=== PATIENT | female | born 1995 | race Caucasian/White ===

== ENCOUNTER 2021-04-17 16:11 | Outpatient (CLI) | payer BC, SELFPAY ==
[2021-04-17 16:35] LABS: Basophils Percent Auto 0.2 % (0.2-1.2); Eosinophils Absolute Auto 0.1 K/mm3 (0-0.3); Eosinophils Percent Auto 1.6 % (0-4.4); Hemoglobin 14.4 g/dL (12.0-15.0); Immature Granulocyte Absolute 0.01 K/mm3 (0.00-0.031); Immature Granulocyte Percent A 0.2 % (0-0.5); Lymphocytes Absolute Auto 1.78 K/mm3 (0.9-3.2); Mean Corpuscular HGB Conc 32.7 g/dl (32-36); Mean Corpuscular Hemoglobin 29.4 pg (26-34); Mean Corpuscular Volume 89.8 fl (80-100); Monocytes Absolute Auto 0.4 K/mm3 (0.1-0.6); Monocytes Percent Auto 7.1 % (2.6-8.5); Neutrophils Absolute Auto 2.7 K/mm3 (1.3-6.7); Neutrophils Percent Auto 54.9 % (45.5-73.1); Platelet Count Result 301 k/mm3 (150-375); Red Cell Distribution Width 12.3 % (11.5-14.5)
[2021-04-17 19:21] LABS: Alanine Aminotransferase 17 U/L (4-35); Albumin Level 4.6 g/dL (3.5-5.1); Alkaline Phosphatase 94 U/L (38-126); Anion Gap 10 mmol/L (8-16); Aspartate Amino Transferase 25 U/L (14-36); Bilirubin,Total 0.5 mg/dL (0.2-1.3); Blood Urea Nitrogen 11 mg/dL (7-17); Calcium 10.1 mg/dL (8.4-10.2); Carbon Dioxide 22 mmol/L (22-30); Chloride 107 mmol/L (98-107); Cholesterol 179 mg/dL (0-200); Estimated Glomerular Filt Rate > 60; Glucose 104 mg/dL (65-105); HDL Direct 36 mg/dL; Hemoglobin A1C 5.4 % (<5.7); Potassium 4.5 mmol/L (3.4-5.0); Sodium 139 mmol/L (137-145); Triglycerides 104 mg/dL (<150)
[2021-04-17 19:32] LABS: LDL Cholesterol Direct 104 mg/dL
[2021-04-17 19:48] LABS: Free T4 Free Thyroxine 1.02 ng/mL (0.78-2.19)
[2021-04-17 20:26] LABS: Folic Acid 13.4 ng/mL (2.76->20)
[2021-04-17 21:53] LABS: Vitamin D 25 Hydroxy 48.4 ng/mL
== END 2021-04-17 16:12 | disposition home or self-care (01) ==
PROVIDERS: PCP Family Medicine
DX: R53.83 Other fatigue (principal)
CPT/HCPCS: 36415; 80053; 80061; 82306; 82607; 82746; 83036; 84439; 84443; 85025

== ENCOUNTER 2022-02-02 16:22 | Outpatient (CLI) | payer BC, SELFPAY ==
--- NOTE | ~2022-02-02 | XR_ITS ---
EXAM: XR tibia fibula RT 2V HISTORY: M89.8X6 - Other specified disorders of bone, lower leg PAIN COMPARISON: None available FINDINGS: Normal mineralization. No fracture or dislocation. No lytic or blastic lesion. Joint space s maintained. No erosion or periosteal change. Soft tissues within normal limits. IMPRESSION: Normal right tibia and fibula radiograph findings. Reviewed, dictated and finalized at location K.
== END 2022-02-02 16:23 | disposition home or self-care (01) ==
LOC: ANHIMG 16:26
PROVIDERS: PCP Family Medicine; Visit Provider Family Medicine
DX: M89.8X6 Other specified disorders of bone, lower leg (principal)
CPT/HCPCS: 73590

== ENCOUNTER 2022-03-16 13:54 | Outpatient (CLI) | payer BC, SELFPAY ==
[2022-03-16 14:23] LABS: Basophils Percent Auto 0.2 % (0.2-1.2); Eosinophils Absolute Auto 0.2 K/mm3 (0-0.3); Eosinophils Percent Auto 5.1 % (0-4.4); Hemoglobin 14.4 g/dL (12.0-15.0); Immature Granulocyte Absolute 0.01 K/mm3 (0.00-0.031); Immature Granulocyte Percent A 0.2 % (0-0.5); Lymphocytes Absolute Auto 1.53 K/mm3 (0.9-3.2); Lymphocytes Percent Auto 37.2 % (18.3-44.2); Mean Corpuscular HGB Conc 32.7 g/dl (32-36); Mean Corpuscular Hemoglobin 29.7 pg (26-34); Mean Corpuscular Volume 90.7 fl (80-100); Mean Platelet Volume 8.8 fl (7.4-10.4); Monocytes Absolute Auto 0.5 K/mm3 (0.1-0.6); Monocytes Percent Auto 12.9 % (2.6-8.5); Neutrophils Absolute Auto 1.8 K/mm3 (1.3-6.7); Neutrophils Percent Auto 44.4 % (45.5-73.1); Platelet Count Result 283 k/mm3 (150-375); Red Blood Count 4.85 M/mm3 (4.2-5.4); Red Cell Distribution Width 12.5 % (11.5-14.5); White Blood Count 4.1 K/mm3 (4.5-10.0)
[2022-03-16 15:18] LABS: Vitamin D 25 Hydroxy 49.5 ng/mL
[2022-03-16 16:20] LABS: Alanine Aminotransferase 23 U/L (6-35); Albumin Level 4.4 g/dL (3.5-5.1); Alkaline Phosphatase 104 U/L (38-126); Anion Gap 9 mmol/L (8-16); Aspartate Amino Transferase 29 U/L (14-36); Bilirubin,Total 0.3 mg/dL (0.2-1.3); Blood Urea Nitrogen 7 mg/dL (7-17); Calcium 9.3 mg/dL (8.4-10.2); Carbon Dioxide 26 mmol/L (22-30); Chloride 103 mmol/L (98-107); Cholesterol 174 mg/dL (0-200); Estimated Glomerular Filt Rate > 60; Glucose 103 mg/dL (65-110); HDL Direct 35 mg/dL; Potassium 4.6 mmol/L (3.4-5.0); Sodium 138 mmol/L (137-145); Triglycerides 96 mg/dL (<150)
[2022-03-16 16:32] LABS: LDL Cholesterol Direct 108 mg/dL
== END 2022-03-16 13:55 | disposition home or self-care (01) ==
LOC: ANHLAB 13:56
PROVIDERS: PCP Family Medicine; Visit Provider Family Medicine
DX: Z00.00 Encounter for general adult medical examination without abnormal findings (principal); E55.9 Vitamin D deficiency, unspecified; E53.8 Deficiency of other specified B group vitamins; Z13.220 Encounter for screening for lipoid disorders; Z79.899 Other long term (current) drug therapy; F41.8 Other specified anxiety disorders; G47.00 Insomnia, unspecified
CPT/HCPCS: 36415; 80053; 80061; 82306; 82607; 84443; 85025

== ENCOUNTER 2025-02-25 07:00 | Emergency (ER) | payer OTHER, SELFPAY ==
--- NOTE | ~2025-02-25 | XR_ITS ---
XR hip LT 2V w AP pelvis Ordering provider: Vidal Murphy MD History: . Nontraumatic pain . Comparison: October 02, 2004 FINDINGS: BONES: No acute fracture or dislocation. Postoperative changes in the left femur. HIP JOINT SPACES: Normal. SACROILIAC JOINT SPACES/LUMBAR SPINE: The sacroiliac joint spaces are normal. Normal visualized lower lumbar spine. PUBIC SYMPHYSIS: Normal. SOFT TISSUES: Normal. IUD is seen in the uterus. IMPRESSION: No acute osseous abnormality pelvis and left hip. Reviewed, dictated and finalized at location A.
[2025-02-25 07:02] VITALS: BP 107/67; PULSE 68; RESP 16; TEMP 36.6; O2SAT 100
--- OUTSIDE RECORDS SUMMARY | 2025-02-25 07:03 | XMS_ITS | Data Portability ---
Author Organization [facility] [place] Address [address] [place] [address] Assessment Encounter Date Assessment Date Assessment LastModified by Organization Details LastModified Time 08/27/2020 08/27/2020 Annual gynecological exam performed. Patient will come back in a year unless there are new symptoms. Not available 08/27/2020 17:35:51 05/28/2021 05/28/2021 pt mitchell well, f/u one month IUD check Not available 05/28/2021 15:13:59 Plan of Treatment Reminders Order Date Submit Date Provider Last Modified By Organization Details Last Modified Time Details Appointments None recorded. Lab None recorded. Referral None recorded. Procedures None recorded. Surgeries None recorded. Imaging None recorded. Medication Orders Cytotec 200 mcg tablet 2020 021 [email or web address] 1 [facility] #[id number], [address] [place], [place], [id number], 10:43:42 ibuprofen 800 mg tablet 2020 021 TRISHA [facility] #[id number], [address], [place], [id number], 15:43:51 Patient TargetsNo targets recorded. Patient Instructions Encounter Date Encounter Id Patient Instructions Last Modified By Organization Details Last Modified Time 08/27/2020 [id number] IUD removed, pamphlets on bcm, considering nexplanon, call with cycle, condoms as bcm until decides Not available 08/28/2020 11:32:24 Reason for Referral None Reported. Results Created Date Observation Date Name Description Value Unit Range Abnormal Flag Note LastModifiedBy Organization Detail LastModifiedTime 08/27/20 20 08/29/2020 pap, LB Pap test thin prep Negati ve for Intrae pithel ial Lesion or Malign ga normal ACCES JAMES #: [id number] Sourc e: Cervi jewels/E ndoce rvica l LMP: 08/11 Date Taken : 08/27 Speci men Type: ThinP rep Vial Date Repor selina: 2019 Clini jewels Data: Cytot ech: Juan Manuel Zhong Solpilo y, CT( CP) Date Repor selina: 2019 Speci men Adequ acy: Satis facto ry for evalu ation Endoc ervic al/tr ansfo rmati on zone compo nent prese nt Gener al Categ oriza tion: NEGAT LIZZETTE FOR INTRA EPITH ELIAL LESIO N OR MALIG LUIS FELIPE This speci men has been justen zed by the ThinP rep Imagi ng Syste m, an inter activ e compu ter syste m which lynnette ts the lab in the scree jitendra of ThinP rep Pap Test slide s. Follo wing imagi ng, the slide was revie wed by a Cytot echno logis t and/o r Patho logis t. End of Repor t Techn ical servi zachariah provi ded by [facility], d/b/a [place] [facility], [address] [place] [address] Herb Dillard MD, Labor [employer] D[employer] tor. Case revie wed and diagn osis rende red at [facility], d/b/a [place] [facility], [address] [place] [address] Herb Dillard MD, Labor [employer] [facility] tor. CONFI DENTI AL Not Available [facility] ([facility]) [address], [place], [address], 08/29/2020 15:05:41 05/20/20 21 05/20/2021 BHCG, QUANT ITATI VE B-HCG <0.2 mIU/m L This assay was perfo rmed using [facility] [employer] ratio n reage nts and test kits. Value s obtai nora with other assay metho ds or kits canno t be used inter bagley eably . Refer ence Range s: Non-p regna nt, preme nopau lashell women : 0.0-5 .3 mIU/m L Postm enopa usal women : 0.0-7 .0 mIU/m L Duyen l Pregn ga: Gesta alber l Age bHCG Conc. - mIU/m L 3 Weeks 5.8 - 71.7 4 Weeks 9.5 - 750 5 Weeks 217-7 138 6 Weeks 158 - 31,79 5 7 Weeks 3,697 - 162,5 63 8 Weeks 32,06 5 - 149,5 71 9 Weeks 63,80 3 - 151,4 10 10 Weeks 46,50 9 - 186,9 77 12 Weeks 27,83 2 - 210,6 12 14 Weeks 13,95 0 - 62,53 0 15 Weeks 12,03 9 - 70,97 1 16 Weeks 9,040 - 56,45 1 17 Weeks 8,175 - 55,86 8 18 Weeks 8,099 - 58,17 6 Not Available [facility] (Lab) [address], [place], [address], 05/21/2021 02:48:19 05/21/20 21 05/21/2021 CT/GC AND TRICH OMONA S VAGIN EVARISTO (RRNA ), URINE chlamydia trachomatis, PCR Negati ve negati ve Not Available [facility] (Lab) [address] , [place], [address], 05/22/2021 15:13:01 05/21/20 21 05/21/2021 CT/GC AND TRICH OMONA S VAGIN EVARISTO (RRNA ), URINE neisseria gonorrhoeae, PCR Negati ve negati ve Not Available [facility] (Lab) [address] , [place], [address], 05/22/2021 15:13:01 05/21/20 21 05/21/2021 CT/GC AND TRICH OMONA S VAGIN EVARISTO (RRNA ), URINE trichomonas vaginalis ribosomal RNA (rrna) Negati ve negati ve Not Available [facility] (Lab) [address] [facility], [place], [address], 05/22/2021 15:13:01 05/28/20 21 05/28/2021 CT/GC AND TRICH OMONA S VAGIN EVARISTO (RRNA ), URINE chlamydia trachomatis, PCR Negati ve negati ve Not Available [facility] (Lab) [address] [facility], [place], [address], 05/29/2021 11:56:00 05/28/20 21 05/28/2021 CT/GC AND TRICH OMONA S VAGIN EVARISTO (RRNA ), URINE neisseria gonorrhoeae, PCR Negati ve negati ve Not Available [facility] (Lab) [address] [facility], [place], [address], 05/29/2021 11:56:00 05/28/20 21 05/28/2021 CT/GC AND TRICH OMONA S VAGIN EVARISTO (RRNA ), URINE trichomonas vaginalis ribosomal RNA (rrna) Negati ve negati ve Not Available [facility] (Lab) [address] [facility], [place], [address], 05/29/2021 11:56:00 Result Notes None recorded. Problems Name Problem SNOMED Code Status Onset Date Resolution Date Notes Provider Name and Address Organization Details Recorded Time SNOMED CT Concept Completed 201705/21/2021 Encntr for general adult medical exam w/o abnormal findings ;Recorde d Elsewher e: No Locat ion: [facility] S ource: EHR Ledger Poster junior: N Practi ce ID: 0001 Hernesto lable Time: 01:00:00 PM Riddhi flores [place] - [facility] 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 1 15:25:30 Pregnanc y test negative [id number] Completed 201405/21/2021 Pregnanc y examinat ion or test, negative result;R ecorded Elsewher e: No Locat ion: [facility] S ource: EHR Ledger Poster junior: N Deeti ce ID: 0001 Hernesto lable Time: 08:30:00 AM Riddhi flores, [facility] 1 15:25:24 Insertio n of intraute rine contrace ptive device Completed 201405/21/2021 INSERTIO N OF IUD;Veto rded Elsewher e: No Locat ion: [facility] N Deeti ce ID: 0001 Hernesto lable Time: 11:00:00 AM Riddhi flores, [facility] 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 1 15:25:28 Uses IUD (intraut erine device) contrace ption [id number] Completed 201405/21/2021 Surveill ance of intraute rine contrace ptive device;R ecorded Elsewher e: No Locat ion: [facility] S ource: EHR Ledger Poster junior: N Deeti ce ID: 0001 Hernesto lable Time: 10:00:00 AM Riddhi flores, [facility] 1 15:25:22 Problem Notes None recorded. Procedures Surgical History Date Name Laterality Status Provider Name and Address Organization Details Recorded Time 1 IUD Insertion completed Rosemary Ortiz CNM [address], [place], [address], [facility] 05/28/2021 15:13:38 1 IUD Insertion completed Riddhi Jang [facility] 05/21/2021 15:37:56 0 IUD Removal completed Riddhimargarita Jnag [facility] 08/27/2020 18:14:35 0 Date of Last Pap Smear completed Riddhimargarita Jang [facility] 08/27/2020 17:47:27 9 operation on hip joint completed Riddhimargarita Jang [facility] 09/05/2020 11:47:38 8 procedure on femur completed Riddhimargarita Jang [facility] 09/05/2020 11:47:10 Imaging Results None recorded. Procedure Notes None recorded. Medical Equipment None Reported. Allergies No known drug allergies Medications Name Sig Start Date Stop Date Status Note LastModified by Organization Details LastModified Time Mirena 21 mcg/24 hr (up to 8 years) 52 mg intrauter ine device 06/05 completed mirena IUD inserted 1 and will need removed 7 Not Available Not Available Not Available trazodone 50 mg tablet active Not Available Not Available Not Available ibuprofen 800 mg tablet Take 1 tablet every 8 hours by oral route as needed. active Not Available Not Available No t Available sertralin e 100 mg tablet active Not Available Not Available Not Available misoprost ol 200 mcg tablet Take 1 tablet every day by oral route at bedtime. 06/05 completed Not Available Not Available Not Available sertralin e 25 mg tablet active Not Available Not Available Not Available ceftriaxo ne 500 mg solution for injection active Not Available Not Available No t Available ParaGard T 380A 380 square mm intrauter ine device Take 1 device by intraute rine route. 2020 active paragard inserted 05/28/2021 and needs removed 05/28/2031 Not Available Not Available Not Available Vitals Date Recorded Body height Body mass index (BMI) Body weight Systolic blood pressure Diastolic blood pressure Provider Name and Address Organization Details Last Updated DateTime 05/21/2021 141.61 cm 33 kg/m2 03497.49 g 121 mm[Hg] 80 mm[Hg] Riddhi Jang [facility] 1 15:24:00 Date Recorded Body height Body mass index (BMI) Body weight Systolic blood pressure Diastolic blood pressure Provider Name and Address Organization Details Last Updated DateTime 05/28/2021 141.61 cm 33.5 kg/m2 95655.67 g 120 mm[Hg] 81 mm[Hg] Riddhi Jang [facility] 1 14:57:13 Date Recorded Body height Body mass index (BMI) Body weight Systolic blood pressure Diastolic blood pressure Provider Name and Address Organization Details Last Updated DateTime 08/27/2020 141.61 cm 33.7 kg/m2 49917.26 g 125 mm[Hg] 80 mm[Hg] Riddhi Jang [facility] 0 17:46:28 Social History Question Answer Notes LastModified by Organizat ion Details LastModified Time Tobacco Smoking Status Never Smoker Riddhi Jang [facility] 05/21/2021 15:24:45 Do You Have An Advance Directive? No [email or web address] Information not available 05/21/2021 What Is Your Level Of Alcohol Consumption? None [email or web address] Information not available 09/05/2020 Are You Blind Or Do You Have Difficulty Seeing? No [email or web address] Information not available 05/21/2021 In The 14 Days Before Symptom Onset, Have You Had Close Contact With A Laboratory-confir med COVID-19 While That Case Was Ill? No [email or web address] Information not available 05/21/2021 In The 14 Days Before Symptom Onset, Have You Had Close Contact With A Person Who Is Under Investigation For COVID-19 While That Person Was Ill? No [email or web address] Information not available 05/21/2021 Have You Been To An Area Known To Be High Risk For COVID-19? No [email or web address] Information not available 05/21/2021 Are You Deaf Or Do You Have Serious Difficulty Hearing? No [email or web address] Information not available 05/21/2021 What Type Of Diet Are You Following? VEGETARIAN [email or web address] Information not available 05/21/2021 Do You Or Have You Ever Used E-cigarettes Or Vape? Never Used Electronic Cigarettes [email or web address] Information not available 05/21/2021 What Is The Highest Grade Or Level Of School You Have Completed Or The Highest Degree You Have Received? 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 No [email or web address] Information not available 05/21/2021 What Was The Date Of Your Most Recent Tobacco Screening? 05/28/2021 Information not available 05/28/2021 Do You Use Protection During Sex? Always [email or web address] Information not available 05/21/2021 Do You Use Your Seat Belt Or Car Seat Routinely? Yes Information not available 05/21/2021 Do You Have Smoke And Carbon Monoxide Detectors In Your Home? No [email or web address] Information not available 05/21/2021 Do You Or Have You Ever Used Smokeless Tobacco? Never Used Smokeless Tobacco [email or web address] Information not available 05/21/2021 How Much Tobacco Do You Smoke? No [email or web address] Information not available 09/05/2020 Do You Feel Stressed (tense, Restless, Nervous, Or Anxious, Or Unable To Sleep At Night)? [id number] [email or web address] Information not available 05/21/2021 Do You Use Any Illicit Or Recreational Drugs? No [email or web address] Information not available 05/21/2021 Do You Use Sunscreen Routinely? Yes [email or web address] Information not available 05/21/2021 Have You Used IV Drugs? No Information not available 05/21/2021 Sex: Unknown Functional Status Question Answer Note LastModified by Organizat ion Details LastModified Time Are you able to walk? YESWOREST [email or web address] Information not available 05/21/2021 What is your exercise level? Occasional [email or web address] Information not available 09/05/2020 Mental Status None recorded. Family History Relationship Description Onset Age of this Age Resolved Age Notes LastModified by Organization Details LastModified Time Maternal Grandmother Diabetes mellitus [email or web address] Not available 09/05 11:44:12 Maternal Grandmother Malignant neoplasm of ovary [email or web address] Not available 09/05 11:44:41 Paternal Grandfather Diabetes mellitus [email or web address] Not available 09/05 11:44:21 Mother Cyst of ovary [email or web address] Not available 2020 15:06:28 Notes:Maternal grandmother: Diabetes mellitus, Ovarian cancer Mother: ovarian cyst Paternal grandfather: Diabetes mellitus Medical History Condition Response Allergies (Food, seasonal, environmental ) N Other N Breast Cancer N Drug/Latex Allergies/Reactions N Blood Transfusion N Dermatologic Disorders N Lung Disease N Defects or Inherited Disease N Breast Problem N Gestational Diabetes N Hematologic disorders N Anesthesia Complications N History of STI N Deep Vein Thrombosis N Polycystic ovary syndrome N Anxiety Disorder N Autoimmune disease N Arthritis N Infertility N Polyps N Acid Reflux (GERD) N History of abnormal pap N Cancer N Stroke N Varicosities N Neurologic/Epilepsy N Endometriosis N High Cholesterol N Headaches N Fibromyalgia N Kidney Disease N Heart Problems N Kidney or Bladder Problems N Thyroid Problems N GI Problems N Eating Disorder N Anemia N Art (IVF or FET) N Psychiatric Illness N Ovarian Cancer N Diabetes N Pulmonary (TB, Asthma) N Hepatitis/Liver Disease N No Past Medical History N Eczema N Urinary Tract Infection N Abuse/Domestic Violence N Asthma N Trauma/Violence N Depression/ depression N Heart Disease N Pre-Eclampsia N Hypertension N Osteoporosis N Thrombophilias N Gynecological History Statement/Question Response Date of LMP 05/25/2021 On BCP's at Conception? N N Was last menstrual period normal Y STIs/STDs N HPV Vaccine N Duration of Flow (days) 2 Current Control Method IUD Frequency of Cycle (Q days) 5 Sexually Active? N IUD Age of first menstrual cycle 11 Date of Last Pap Smear 08/27/2020 Sexual Problems? N Desired Control Method LMP Approximate N Obstetrics History GPAL:G 0 P 0 0 0 0 Type Value Living 0 Total 0 Past Encounters Encounter ID Performer Location Encounter Start Date Encounter Closed Date Diagnosis/Indication Diagnosis SNOMED-CT Code Diagnosis ICD10 Code Diagnosis Note [id number] Rosemary Ortiz [place] [address],[place] [address] 08/27/2020 17:18:48 08/29/2020 16:25:07 Gynecologic examination 96185586 Z01.419 Removal of intrauterine device 02043111 Z30.432 [id number] Rosemary Ortiz [facility] [address],[place] [address] 05/21/2021 15:05:37 05/21/2021 16:06:43 Uses IUD (intrauterine device) contraception 680521978 Z97.5 [id number] Rosemary Ortiz [facility] [address],[place] [address] 05/28/2021 14:11:13 05/29/2021 10:19:51 Insertion of intrauterine contraceptive device 97313884 Z30.430 Health Concerns Section Related Observation LastModified by Organization Detai ls LastModified Time None Recorded Concern Status LastModified by Organization Details LastModified Time None Recorded Advance Directives Directive N: Payers Encounter Date Sequence Insurance Name Policy Number Policy Mcgill Covered Member ID Mcgill Member ID Guarantor Name 08/27/2020 1 [place] [id number] Harjinder McKeal [id number] Anika McKeal 05/21/2021 1 [place] [id number] Harjinder McKeal [id number] Anika McKeal 05/28/2021 1 [place] [id number] Harjinder McKeal [id number] Anika McKeal Notes Date Note Type Note Provider Name and Address Organization Details Recorded Time 08/27/2020 text/html Annual GYNReport ed bypatient.History:n o gynecologic complaints Menstrual cycle:Normal menses Urinary symptoms:No hematuria; No incontinence Vulva:No genital lesion Vagina:Normal vaginal discharge Breast:No breast pain; No breast lump; No nipple discharge Sexual complaints:No sexual complaints; No pain during intercourse; Normal libido Menopausal Symptoms:No menopausal symptoms; Normal vaginal lubrication Psychological symptoms:No depression; No anxiety; No PMDDNotes:iud very nervous about removal and pap, unsure about bcm, no sbe, boyfrend at visit Patient presents for IUD insertion. Rosemary Ortiz CNM [address], [place], [address], [facility] 08/28/2020 11:32:56 05/21/2021 text/html No chargePatient presents for IUD insertion. no charge visit, pt would like pain medication prior to insertion, very nervous, low pain threshold, also will wait until on menstrual cycle Rosemary Ortiz CNM [address], [place], [address], [facility] 05/21/2021 15:43:51 05/28/2021 text/html Patient presents for IUD insertion. reviewed se risks consent signed upt neg Rosemary Ortiz CNM [address], [place], [address], [facility] 05/28/2021 15:14:07 OBGyn Episode No OBEpisode recorded.
--- OUTSIDE RECORDS SUMMARY | 2025-02-25 07:03 | XMS_ITS | Clinical Summary ---
Author Organization [facility] Address [address] [place] [id number] Care Team Providers Care Dixonac Operator Name Role Phone Unavailable Primary Care Provider Unavailabl e Social History Tobacco Use Types Packs/Day Years Used Date Smoking Tobacco: Never Assessed Comments Unknown Sex and Gender Information Value Date Recorded Sex Assigned at Not on file Legal Sex Female 7:21 PM CDT Gender Identity Not on file Sexual Orientation Not on file Plan of Treatment Health Maintenance Due Date Last Done Comments Cervical Cancer Screening Pa p Smear (Age 21 to 29) Every 3 Years 1996 Cervical Cancer Screening 1996 Annual Physical 1999 Hepatitis C 2014 DTaP, Tdap and Td Vaccines ( 1 - Tdap) 2015 Hepatitis B Vaccines (1 of 3 - 19+ 3-dose series) 2015 COVID-19 Vaccine (2023-2 5 season) 2024 HPV Vaccines Aged Out No longer eligi ble based on patient's age to complete this topic Meningococcal B Vaccine Aged Out No l onger eligible based on patient's age to complete this topic Meningococcal Vaccine Aged Out No catia lenard eligible based on patient's age to complete this topic Pneumococcal Vaccine: Pediat rics (0 to 5 Years) and At-Risk Patients (6 to 49 Years) Aged Out No longer eligible b ased on patient's age to complete this topic RSV Immunizations Under 20 Months Aged Out No longer eligible based on patient's age to complete this topic
--- OUTSIDE RECORDS SUMMARY | 2025-02-25 07:03 | XMS_ITS | Data Portability ---
Author Organization [facility] FARZANEHCarlos Address [address] [place] [address] Assessment No assessment recorded. Plan of Treatment Reminders Order Date Submit Date Provider Last Modified By Organization Details Last Modified Time Details Appointments None recorded. Lab CMP, serum or plasma 2020 021 [facility], [address], [place], [address], 17:09:24 CBC w/ auto diff 2020 021 [facility], [address], [place], [address], 17:09:24 urinalysis, complete 2020 021 [facility], [address], [place], [address], 17:09:25 lipid panel, serum 2020 021 [facility], [address], [place], [address], 1 17:09:26 HIV 1+2 AB + HIV 1 p24 Ag, qualitative immunoassay , serum 2020 021 [facility], [address], [place], [address], 17:09:27 MMR immunity, serum 2020 [facility], [address], [place], [address], 17:09:26 PPD (purified protein derivative) , skin test 2020 [facility] In-Office Order, Internal Use Only DO Not Attach Compendium DO Not Attach Compendium, Do Not Delete/merge, [id number] 13:40:56 Referral None recorded. Procedures None recorded. Surgeries None recorded. Imaging None recorded. Medication Orders Tubersol 5 tub. unit/0.1 mL intradermal injection solution 2020 [email or web address] Not available 15:01:26 Patient TargetsNo targets recorded. Patient Instructions Encounter Date Encounter Id Patient Instructions Last Modified By Organization Details Last Modified Time 12/17/2020 [id number] learning about tuberculosis (TB) oajao Not available 12/17/2020 14:52:15 Labs oajao Not available 2020 14:38:46 Reason for Referral None Reported. Results Created Date Observation Date Name Description Value Unit Range Abnormal Flag Note LastModifiedBy Organization Detail LastModifiedTime 12/19/1912/20/2020 CBC w/ auto diff WBC 6.4 x10e3 /uL 3.4-10 .8 Not Available [facility] ([facility]) [address] [place], [address], 12/20/2020 17:09:24 12/19/1912/20/2020 CBC w/ auto diff RBC 4.73 x10e6 /uL 3.77-5 .28 Not Available [facility] ([facility]) [address] [place], [address], 12/20/2020 17:09:24 12/19/19 21 12/20/2020 CBC w/ auto diff hemoglobin 14.2 g/dL 11.1-1 5.9 Not Available [facility] ([facility]) [address] [place], [address], 12/20/2020 17:09:24 12/19/19 21 12/20/2020 CBC w/ auto diff hematocrit 42.2 % 34.0-4 6.6 Not Available [facility] ([facility]) [address] [place], [address], 12/20/2020 17:09:24 12/19/19 21 12/20/2020 CBC w/ auto diff MCV 89 fL 79-97 Not Available [facility] ([facility]) [address] [place], [address], 12/20/2020 17:09:24 12/19/19 21 12/20/2020 CBC w/ auto diff MCH 30.0 pg 26.6-3 3.0 Not Available [facility] ([facility]) [address] [place], [address], 12/20/2020 17:09:24 12/19/19 21 12/20/2020 CBC w/ auto diff MCHC 33.6 g/dL 31.5-3 5.7 Not Available [facility] ([facility]) [address] [place], [address], 12/20/2020 17:09:24 12/19/19 21 12/20/2020 CBC w/ auto diff RDW 12.2 % 11.7-1 5.4 Not Available [facility] ([facility]) [address] [place], [address], 12/20/2020 17:09:24 12/19/19 21 12/20/2020 CBC w/ auto diff platelets 348 x10e3 /uL 150-45 0 Not Available [facility] ([facility]) [address] [place], [address], 12/20/2020 17:09:24 12/19/19 21 12/20/2020 CBC w/ auto diff neutrophils 55 % not estab. Not Available [facility] ([facility]) [address] [facility], [place], [address], 12/20/2020 17:09:24 12/19/19 21 12/20/2020 CBC w/ auto diff lymphs 37 % not estab. Not Available [facility] ([facility]) [address] [facility], [place], [address], 12/20/2020 17:09:24 12/19/19 21 12/20/2020 CBC w/ auto diff monocytes 7 % not estab. Not Available [facility] ([facility]) [address] [place], [address], 12/20/2020 17:09:24 12/19/19 21 12/20/2020 CBC w/ auto diff eos 1 % not estab. Not Available [facility] ([facility]) [address] [facility], [place], [address], 12/20/2020 17:09:24 12/19/19 21 12/20/2020 CBC w/ auto diff basos 0 % not estab. Not Available [facility] (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) [address] [place], [address], 12/20/2020 17:09:24 12/19/19 21 12/20/2020 CBC w/ auto diff neutrophils (absolute) 3.4 x10e3 /uL 1.4-7. 0 Not Available [facility] ([facility]) [address] [place], [address], 12/20/2020 17:09:24 12/19/19 21 12/20/2020 CBC w/ auto diff lymphs (absolute) 2.3 x10e3 /uL 0.7-3. 1 Not Available [facility] ([facility]) [address] [facility], [place], [address], 12/20/2020 17:09:24 12/19/19 21 12/20/2020 CBC w/ auto diff monocytes(ab solute) 0.5 x10e3 /uL 0.1-0. 9 Not Available [facility] ([facility]) [address] [facility], [place], [address], 12/20/2020 17:09:24 12/19/19 21 12/20/2020 CBC w/ auto diff eos (absolute) 0.1 x10e3 /uL 0.0-0. 4 Not Available [facility] ([facility]) [address] [facility], [place], [address], 12/20/2020 17:09:24 12/19/19 21 12/20/2020 CBC w/ auto diff baso (absolute) 0.0 x10e3 /uL 0.0-0. 2 Not Available [facility] ([facility]) [address] [facility], [place], [address], 12/20/2020 17:09:24 12/19/19 21 12/20/2020 CBC w/ auto diff immature granulocytes 0 % not estab. Not Available [facility] ([facility]) [address] [place], [address], 12/20/2020 17:09:24 12/19/19 21 12/20/2020 CBC w/ auto diff immature grans (abs) 0.0 x10e3 /uL 0.0-0. 1 Not Available [facility] (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) [address] [place], [address], 12/20/2020 17:09:24 12/19/19 21 12/20/2020 CMP, serum or plasm a glucose 93 mg/dL 65-99 Not Available [facility] ([facility]) [address] [place], [address], 12/20/2020 17:09:24 12/19/19 21 12/20/2020 CMP, serum or plasm a BUN 9 mg/dL 6-20 Not Available [facility] ([facility]) [address] [place], [address], 12/20/2020 17:09:24 12/19/19 21 12/20/2020 CMP, serum or plasm a creatinine 0.67 mg/dL 0.57-1 .00 Not Available [facility] ([facility]) [address] [place], [address], 12/20/2020 17:09:24 12/19/19 21 12/20/2020 CMP, serum or plasm a eGFR if nonafricn AM 123 mL/mi n/1.7 3 >59 Not Available [facility] ([facility]) [address] [place], [address], 12/20/2020 17:09:24 12/19/19 21 12/20/2020 CMP, serum or plasm a eGFR if africn AM 142 mL/mi n/1.7 3 >59 Not Available [facility] ([facility]) [address] [place], [address], 12/20/2020 17:09:24 12/19/19 21 12/20/2020 CMP, serum or plasm a BUN/creatini ne ratio 13 9-23 Not Available [facility] ([facility]) [address] [place], [address], 12/20/2020 17:09:24 12/19/1912/20/2020 CMP, serum or plasm a sodium 141 mmol/ L 134-14 4 Not Available [facility] ([facility]) [address] [place], [address], 12/20/2020 17:09:24 12/19/19 21 12/20/2020 CMP, serum or plasm a potassium 4.2 mmol/ L 3.5-5. 2 Not Available [facility] ([facility]) [address] [place], [address], 12/20/2020 17:09:24 12/19/19 21 12/20/2020 CMP, serum or plasm a chloride 103 mmol/ L 96-106 Not Available [facility] ([facility]) [address] [place], [address], 12/20/2020 17:09:24 12/19/19 21 12/20/2020 CMP, serum or plasm a carbon dioxide, total 21 mmol/ L 20-29 Not Available [facility] ([facility]) [address] [place], [address], 12/20/2020 17:09:24 12/19/1912/20/2020 CMP, serum or plasm a calcium 9.5 mg/dL 8.7-10 .2 Not Available [facility] ([facility]) [address] [place], [address], 12/20/2020 17:09:24 12/19/1912/20/2020 CMP, serum or plasm a protein, total 7.0 g/dL 6.0-8. 5 Not Available [facility] ([facility]) [address] [place], [address], 12/20/2020 17:09:24 12/19/19 21 12/20/2020 CMP, serum or plasm a albumin 4.3 g/dL 3.9-5. 0 Not Available [facility] ([facility]) [address] [place], [address], 12/20/2020 17:09:24 12/19/19 21 12/20/2020 CMP, serum or plasm a globulin, total 2.7 g/dL 1.5-4. 5 Not Available [facility] ([facility]) [address] [place], [address], 12/20/2020 17:09:24 12/19/1912/20/2020 CMP, serum or plasm a A/G ratio 1.6 1.2-2. 2 Not Available [facility] ([facility]) [address] [place], [address], 12/20/2020 17:09:24 12/19/1912/20/2020 CMP, serum or plasm a bilirubin, total 0.5 mg/dL 0.0-1. 2 Not Available [facility] ([facility]) [address] [place], [address], 12/20/2020 17:09:24 12/19/19 21 12/20/2020 CMP, serum or plasm a alkaline phosphatase 118 IU/L 39-117 above high normal Not Available [facility] ([facility]) [address] [place], [address], 12/20/2020 17:09:24 12/19/1912/20/2020 CMP, serum or plasm a AST (SGOT) 21 IU/L 0-40 Not Available [facility] ([facility]) [address] [place], [address], 12/20/2020 17:09:24 12/19/19 21 12/20/2020 CMP, serum or plasm a ALT (SGPT) 27 IU/L 0-32 Not Available [facility] ([facility]) [address] [place], [address], 12/20/2020 17:09:24 12/19/19 21 12/20/2020 urina lysis , compl ete specific gravity 1.029 1.005- 1.030 Not Available [facility] ([facility]) [address] [place], [address], 12/20/2020 17:09:25 12/19/19 21 12/20/2020 urina lysis , compl ete pH 5.0 5.0-7. 5 Not Available [facility] ([facility]) [address] [place], [address], 12/20/2020 17:09:25 12/19/19 21 12/20/2020 urina lysis , compl ete urine-color Yellow yellow Not Available [facility] ([facility]) [address] [place], [address], 12/20/2020 17:09:25 12/19/19 21 12/20/2020 urina lysis , compl ete appearance Cloudy clear abnormal Not Available [facility] ([facility]) [address] [place], [address], 12/20/2020 17:09:25 12/19/19 21 12/20/2020 urina lysis , compl ete WBC esterase Trace negati ve abnormal Not Available [facility] ([facility]) [address] [place], [address], 12/20/2020 17:09:25 12/19/19 21 12/20/2020 urina lysis , compl ete protein Trace negati ve/tra ce Not Available [facility] ([facility]) [address] [place], [address], 12/20/2020 17:09:25 12/19/19 21 12/20/2020 urina lysis , compl ete glucose Negati ve negati ve Not Available [facility] ([facility]) [address] [place], [address], 12/20/2020 17:09:25 12/19/19 21 12/20/2020 urina lysis , compl ete ketones 1+ negati ve abnormal Not Available [facility] ([facility]) [address] [place], [address], 12/20/2020 17:09:25 12/19/19 21 12/20/2020 urina lysis , compl ete occult blood Negati ve negati ve Not Available [facility] ([facility]) [address] [place], [address], 12/20/2020 17:09:25 12/19/19 21 12/20/2020 urina lysis , compl ete bilirubin Negati ve negati ve Not Available [facility] ([facility]) [address] [place], [address], 12/20/2020 17:09:25 12/19/19 21 12/20/2020 urina lysis , compl ete urobilinogen ,semi-qn 1.0 mg/dL 0.2-1. 0 Not Available [facility] ([facility]) [address] [place], [address], 12/20/2020 17:09:25 12/19/19 21 12/20/2020 urina lysis , compl ete nitrite, urine Negati ve negati ve Not Available [facility] ([facility]) [address] [place], [address], 12/20/2020 17:09:25 12/19/19 21 12/20/2020 urina lysis , compl ete microscopic examination See below: Micro scopi c was indic ated and was perfo rmed. Not Available [facility] ([facility]) [address] [place], [address], 12/20/2020 17:09:25 12/19/19 21 12/20/2020 urina lysis , compl ete WBC 6-10 /hpf 0 - 5 abnormal Not Available [facility] ([facility]) [address] [facility], [place], [address], 12/20/2020 17:09:25 12/19/19 21 12/20/2020 urina lysis , compl ete RBC 0-2 /hpf 0 - 2 Not Available [facility] ([facility]) [address] [facility], [place], [address], 12/20/2020 17:09:25 12/19/19 21 12/20/2020 urina lysis , compl ete epithelial cells (non renal) 0-10 /hpf 0 - 10 Not Available [facility] (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) [address] [facility], [place], [address], 12/20/2020 17:09:25 12/19/19 21 12/20/2020 urina lysis , compl ete mucus threads Presen t not estab. Not Available [facility] ([facility]) [address] [facility], [place], [address], 12/20/2020 17:09:25 12/19/19 21 12/20/2020 urina lysis , compl ete bacteria None seen none seen/f ew Not Available [facility] (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) [address] [facility], [place], [address], 12/20/2020 17:09:25 12/19/19 21 12/20/2020 lipid panel , serum cholesterol, total 165 mg/dL 100-19 9 Not Available [facility] ([facility]) [address] [place], [address], 12/20/2020 17:09:26 12/19/19 21 12/20/2020 lipid panel , serum triglyceride s 74 mg/dL 0-149 Not Available [facility] ([facility]) [address] [place], [address], 12/20/2020 17:09:26 12/19/19 21 12/20/2020 lipid panel , serum HDL cholesterol 37 mg/dL >39 below low normal Not Available [facility] ([facility]) [address] [place], [address], 12/20/2020 17:09:26 12/19/19 21 12/20/2020 lipid panel , serum VLDL cholesterol jewels 14 mg/dL 5-40 Not Available [facility] ([facility]) [address] [place], [address], 12/20/2020 17:09:26 12/19/19 21 12/20/2020 lipid panel , serum LDL chol calc ([facility]) 114 mg/dL 0-99 above high normal Not Available [facility] (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) [address] [place], [address], 12/20/2020 17:09:26 12/19/19 21 12/20/2020 MMR immun ity, serum rubella antibodies, IgG 3.63 index immune >0.99 Non-i mmune <0.90 Equiv ocal 0.90 - 0.99 Immun e >0.99 Not Available [facility] ([facility]) [address] [place], [address], 12/20/2020 17:09:26 12/19/19 21 12/20/2020 MMR immun ity, serum measles antibodies, IgG 244.0 AU/mL immune >16.4 Negat marlena <13.5 Equiv ocal 13.5 - 16.4 Posit marlena >16.4 Prese nce of antib odies to Rube[place] la is presu mptiv e evide nce of immun ity excep t when acute infec tion is suspe cted. Not Available [facility] ([facility]) [address] [facility], [place], [address], 12/20/2020 17:09:26 12/19/19 21 12/20/2020 MMR immun ity, serum mumps abs, IgG 166.0 AU/mL immune >10.9 Negat marlena <9.0 Equiv ocal 9.0 - 10.9 Posit marlena >10.9 A posit marlena resul t gener ally indic ates past expos ure to Mumps virus or previ ous vacci natio n. Not Available [facility] ([facility]) [address] [facility], [place], [address], 12/20/2020 17:09:26 12/19/19 21 12/20/2020 HIV 1+2 AB + HIV 1 p24 Ag, quali tativ e immun oassa y, serum HIV screen 4TH generation wrfx Non Reacti ve non reacti ve Not Available [facility] ([facility]) [address] [facility], [place], [address], 12/20/2020 17:09:27 12/20/19 21 12/20/2020 PPD (thi fied prote in deriv ative ), skin test Result Negati ve Not Available In-Office Order Internal Use Only DO Not Attach Compendium DO Not Attach Compendium, Do Not Delete/merge, [id number] 12/17/2020 14:26:04 Result Notes None recorded. Problems No Known Problems Procedures Surgical History Date Name Laterality Status Provider Name and Address Organization Details Recorded Time operation on hip joint completed Maile Jang MA [place] - [facility] 12/17/2020 14:22:51 Imaging Results None recorded. Procedure Notes None recorded. Medical Equipment None Reported. Allergies No known drug allergies Medications Name Sig Start Date Stop Date Status Note LastModified by Organization Details LastModified Time Tubersol 5 tub. unit/0.1 mL intradermal injection solution Inject 0.1 mL every day by intradermal route for 1 day. 2020 active Not Available Not Available Not Avai lable Vitals Date Recorded Body weight Body mass index (BMI) Body height Heart rate Oxygen saturation Oxygen saturation in Arterial blood by Pulse oximetry Body temperature Respiratory rate Systolic blood pressure Diastolic blood pressure Provider Name and Address Organization Details Last Updated DateTime 98528.8 6 g 32.2 kg/m2 145.42 cm 94 /min 98 % 98 % 98 [degF] 12 /min 116 mm[Hg] 80 mm[Hg] Maile Jang MA [facility] 14:25:07 Social History Question Answer Notes LastModified by Organizat ion Details LastModified Time Tobacco Smoking Status Never Smoker Maile Jang MA null, [place] - COUNT[facility] BEDS AT [facility] 12/17/2020 14:21:51 What Is Your Level Of Alcohol Consumption? Occasional Information not available 12/17/2020 Are You Blind Or Do You Have Difficulty Seeing? No Information not available 12/17/2020 What Is Your Level Of Caffeine Consumption? Moderate Soda Information not available 12/17/2020 In The 14 Days Before Symptom Onset, Have You Had Close Contact With A Laboratory-confir med COVID-19 While That Case Was Ill? No Information not available 12/17/2020 Have You Been To An Area Known To Be High Risk For COVID-19? No Information not available 12/17/2020 Are You Currently Employed? Yes Information not available 12/17/2020 Are You Deaf Or Do You Have Serious Difficulty Hearing? No Information not available 12/17/2020 What Type Of Diet Are You Following? 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 No Information not available 12/17/2020 What Is Your Relationship Status? Single Information not available 12/17/2020 Do You Use Your Seat Belt Or Car Seat Routinely? Yes Information not available 12/17/2020 Do You Have Smoke And Carbon Monoxide Detectors In Your Home? Yes Information not available 12/17/2020 Do You Use Any Illicit Or Recreational Drugs? No Information not available 12/17/2020 Do You Use Sunscreen Routinely? No Information not available 12/17/2020 Has Tobacco Cessation Counseling Been Provided? No Information not available 12/17/2020 Do You Or Have You Ever Used Any Other Forms Of Tobacco Or Nicotine? No Information not available 12/17/2020 Sex: Unknown Functional Status Question Answer Note LastModified by Organizat ion Details LastModified Time Are you able to care for yourself? Yes Information not available 12/17/2020 What is your exercise level? Occasional Information not available 12/17/2020 Mental Status None recorded. Family History Relationship Description Onset Age of this Age Resolved Age Notes LastModified by Organization Details LastModified Time Maternal Grandmother Diabetes mellitus [email or web address] Not available 2020 14:20:31 Unspecified Relation Family history of malignant neoplasm colon and skin [email or web address] Not available 12/17/2020 14:21:15 Medical History Condition Response Coronary Artery Disease N Other N Atrial Fibrillation N High Blood Pressure N Depression N COPD N Blood Clots N Anxiety Disorder N Muscle, Joint, or Bone Problems N Acid Reflux (GERD) N Cancer N Stroke N High Cholesterol N Liver Disease N Headaches N Kidney or Bladder Problems N Thyroid Problems N GI Problems N Skin Problems N Anemia N Heart Attack (DC) N Diabetes N Seizures/Epilepsy N Asthma N Allergies N Hepatitis N Osteoporosis N Heart Failure N Gynecological History Statement/Question Response Current Control Method None Obstetrics History GPAL:G 0 P 0 0 0 0 Immunizations Vaccine Type Date Status Note Provider Nam e and Address Organization Details Recorded Time Tdap 10/25/2017 completed Amada King MD Attn: [facility] [place], [address], [facility] 12/17/2020 14:33:30 Past Encounters Encounter ID Performer Location Encounter Start Date Encounter Closed Date Diagnosis/Indication Diagnosis SNOMED-CT Code Diagnosis ICD10 Code Diagnosis Note [id number] Amada King MD [facility] ([facility] [address] [place] [address] 12/17/2020 14:04:40 12/18/2020 08:07:18 Tuberculosis screening 068549374 Z11.7 General ex amination of patient 036965448 Z00.01 Influenza vaccination declined 521253495 Z28.21 Antibody measurement 352 7003 Z01.84 Health Concerns Section Related Observation LastModified by Organization Detai ls LastModified Time None Recorded Concern Status LastModified by Organization Details LastModified Time None Recorded Advance Directives Directive None Recorded Payers Encounter Date Sequence Insurance Name Policy Number Policy Mcgill Covered Member ID Mcgill Member ID Guarantor Name 12/17/2020 2 [place] [employer] Anika Zuniga [id number] Anika Zuniga 12/17/2020 1 [id number] Harjinder Zuniga [id number] Anika Zuniga Notes Date Note Type Note Provider Name and Address Organization Details Recorded Time 12/17/2020 text/html Just a physical 25 y/o WF with a PMHX of a dislocated L. hip s/p ORIF PCP Dr Juan King MD Attn: [facility],[address] [facility], [place], [address], [facility] 12/17/2020 18:03:39 OBGyn Episode No OBEpisode recorded.
--- NOTE | 2025-02-25 07:16 | ED_ITS ---
HPI - Back Pain/Injury General Chief Complaint: Back Pain/Injury Stated Complaint: L hip pain, radiates into foot Time Seen by Provider: 02/25/25 07:14 Source: patient Mode of arrival: ambulatory History of Present Illness HPI Narrative: Patient presents with left hip pain started 2 days ago, worse with longstanding. History of left hip surgery 2007 secondary to defect, patient denies any recent trauma. Started a new job June 2024 requires longstanding. Related Data Home Medications ?Medication ?Instructions ?Recorded ?Confirmed ?Last Taken ?Type escitalopram oxalate 10 mg tablet 10 mg PO DAILY 02/02/22 03/16/22 Unknown History trazodone 50 mg tablet 50 mg PO QHS PRN 02/02/22 03/16/22 Unknown History Allergies Allergy/AdvReac Type Severity Reaction Status Date / Time No Known Allergies Allergy Verified 02/25/25 07:12 Review of Systems Review of Systems: All systems reviewed & are unremarkable except as noted in HPI and below PMFSH Past Medical History Medical History Learning disability Insomnia Depression with anxiety Surgical History Surgical History 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 Family History Family History Other Carcinoma of colon Diabetes mellitus Hypertension Social History Social History Smoking status: Never smoker Second hand tobacco smoke exposure: No Alcohol intake: never Exam Narrative: General appearance: Well-developed, well-nourished Skin: Normal color Head: Normocephalic, nontraumatic Eyes: Clear conjunctiva ENT: Oropharynx normal, ears normal, nose normal Neck: Supple, nontender Chest and respiratory: Airway patent, no respiratory distress, no accessory muscle use Heart: Regular rate/rhythm Abdomen: Soft, nontender, no organomegaly, quiet bowel sounds Vascular: Normal peripheral pulses, normal capillary refill. Musculoskeletal: Slight tenderness left hip laterally, no bruises, no swelling no rash slight limited range of motion because of pain Neurologic: Alert and oriented ?3, DIRECTOR OF SCIENTIFIC RESEARCH is normal as tested, no gross motor deficit Course Vital Signs Vital signs: Vital Signs Temperature 36.6 C 02/25/25 07:02 Pulse Rate 68 02/25/25 07:02 Respiratory Rate 16 02/25/25 07:02 Blood Pressure 107/67 02/25/25 07:02 Pulse Oximetry 100 02/25/25 07:02 Oxygen Delivery Room Air 02/25/25 07:02 Temperature 36.6 C 02/25/25 07:02 Pulse Rate 68 02/25/25 07:02 Respiratory Rate 16 02/25/25 07:02 Blood Pressure 107/67 02/25/25 07:02 Pulse Oximetry 100 02/25/25 07:02 Oxygen Delivery Room Air 02/25/25 07:02 MDM - Back Pain/Injury MDM Narrative Medical decision making narrative: Nontraumatic left hip pain, physical examination consistent with tenderness laterally, X-ray of the left hip and pelvis show showed no acute abnormalities Differential Diagnosis Differential diagnosis: Likely other (Hip strain/sprain) Imaging Data Radiologist's impression: Impressions Hip/Pelvis X-Ray 02/25/25 08:18 IMPRESSION: No acute osseous abnormality pelvis and left hip. Critical Care Time Critical Care Time Critical Care Time: No Discharge Plan Discharge Clinical Impression: Hip pain Patient Disposition: Home Condition: Stable Instructions: Hip Pain (ED) Additional Instructions: Return if symptoms are worsening , call your family physician for appointment, take Tylenol as as needed for aches and pain, continue home medications. Patient Language: Tongan Prescriptions: New diclofenac sodium 75 mg tablet,delayed release (DR/EC) 75 mg PO BID PRN (Reason: pain) Qty: 14 0RF No Action trazodone 50 mg tablet 50 mg PO QHS PRN escitalopram oxalate 10 mg tablet 10 mg PO DAILY cyanocobalamin (vitamin B-12) 1,000 mcg tablet, sublingual 1,000 mcg sublingual DAILY Qty: 90 2RF Follow-up/Referrals: Joellen Anderson MD [Primary Care Provider] - Stand Alone Forms: Work/School Release IP
--- OUTSIDE RECORDS SUMMARY | 2025-02-25 07:42 | XMS_ITS | Clinical Summary ---
Author Organization [facility] Address [address] [place] [id number] Care Team Providers Care Rail Engineer Name Role Phone Unavailable Primary Care Provider [...]
[2025-02-25] MEDS: ACETAMINOPHEN 325 MG TABLET 650 MG PO (08:14)
[2025-02-25] MEDS: IBUPROFEN 600 MG TABLET PO (08:14)
[2025-02-25 08:44] VITALS: BP 131/76; PULSE 66; RESP 17; O2SAT 100
== END 2025-02-25 08:44 | disposition home or self-care (01) ==
PROVIDERS: Emergency Provider Emergency Medicine; PCP Family Medicine
DX: M25.552 Pain in left hip (principal)
CPT/HCPCS: 73502; 99283; A9270